=== PATIENT | male | born 1955 | race Caucasian/White ===

== ENCOUNTER 2020-05-17 16:55 | Emergency (ER) | payer MEDICARE, SELFPAY ==
--- NOTE | ~2020-05-17 | XR_ITS ---
EXAMINATION: XR chest 2V 05/17/2020 17:47 INDICATION: Midsternal chest pain PROCEDURE: 2 view chest COMPARISON: 09/18/2016 FINDINGS: The lungs are clear. The cardiomediastinal silhouette is within normal limits. There are no pleural effusions. There is no pneumothorax suspected. IMPRESSION: 1: NO ACUTE CARDIOPULMONARY DISEASE. Reviewed, dictated and finalized at location A.
--- NOTE | 2020-05-17 16:57 | ECG_ITS ---
Measurements Intervals [place] Rate: 64 P: MN: 0 QRS: -26 QRSD: 91 T: 0 QT: 376 QTc: 390 Interpretive Statements SINUS OR ECTOPIC ATRIAL RHYTHM WITH SHORT [place] INTERVAL BORDERLINE R WAVE PROGRESSION, ANTERIOR LEADS NONSPECIFIC T-WAVE ABNORMALITY- INFERIOR LEADS BORDERLINE ECG Electronically Signed On 05-18-2020 7:14:56 CDT by Jalen Weiss D.O.
[2020-05-17 17:09] VITALS: BP 147/93; PULSE 64; RESP 17; TEMP 36.8; O2SAT 100
[2020-05-17 17:14] VITALS: O2SAT 100
[2020-05-17] MEDS: ASPIRIN 81 MG CHEWABLE TABLET 324 MG PO (17:27)
[2020-05-17 17:28] VITALS: BP 141/81; PULSE 63; RESP 16; O2SAT 98
[2020-05-17 17:30] LABS: Basophils Percent Auto 0.6 % (0.2-1.2); Eosinophils Absolute Auto 0.1 K/mm3 (0-0.3); Eosinophils Percent Auto 1.3 % (0-4.4); Hematocrit 45.5 % (42.0-52.0); Hemoglobin 15.3 g/dL (14.0-18.0); Immature Granulocyte Absolute 0.01 K/mm3 (0.00-0.031); Immature Granulocyte Percent A 0.1 % (0-0.5); Lymphocytes Absolute Auto 2.12 K/mm3 (0.9-3.2); Lymphocytes Percent Auto 30.6 % (18.3-44.2); Mean Corpuscular HGB Conc 33.6 g/dl (32-36); Mean Corpuscular Volume 95.2 fl (80-100); Mean Platelet Volume 12.4 fl (7.4-10.4); Monocytes Absolute Auto 0.5 K/mm3 (0.1-0.6); Monocytes Percent Auto 6.8 % (2.6-8.5); Neutrophils Absolute Auto 4.2 K/mm3 (1.3-6.7); Neutrophils Percent Auto 60.6 % (45.5-73.1); Platelet Count Result 207 k/mm3 (150-375); Red Blood Count 4.78 M/mm3 (4.6-6.20); Red Cell Distribution Width 13.4 % (11.5-14.5); White Blood Count 6.9 K/mm3 (4.5-10.0)
--- NOTE | 2020-05-17 17:31 | ED.CHESTPAIN ---
HPI - Chest Pain General Chief Complaint: Chest Pain Stated Complaint: midsternal chest pain Time Seen by Provider: 05/17/20 17:24 History of Present Illness HPI narrative: Patient presents for lower sternal chest pain today. Happened just prior to present. Lasted about a minute. It was a 9 out of 10 on intensity. His hands were sweating. He had no shortness of breath or nausea. He has not been sick recently. He works here as a radiologist. He has had a long history of irregular heartbeat. Many years ago he saw a files supervisor and wore a cardiology coordinator. He does not recall what diagnosis was given. He often feels extra beats. He had a family member that at 65 of unknown causes. He has had a few elevated blood pressures recently. He has known hypercholesterolemia. He does not smoke or do drug. MD complaint: chest pain Pertinent past history: other (Irregular heartbeats) Onset (ago): minute(s) Timing of current episode: now resolved Prior episodes: No Onset: during rest Pain location: substernal Pain radiation: none Severity: severe Quality: tightness Relieving factors: nothing Exacerbating factors: nothing Related Data Home Medications Medication Instructions Recorded Confirmed levothyroxine 05/17/20 Allergies Allergy/AdvReac Type Severity Reaction Status Date / Time No Known Allergies Allergy Verified 05/17/20 17:12 Review of Systems Review of Systems: Narrative: CONSTITUTIONAL: Denies fever, chills, but did have sweaty palms EYES: Denies visual changes, redness, or discharge. ENT: Denies rhinorrhea, congestion, sore throat, or otalgia. CARDIOVASCULAR: He has sharp severe chest pain, and frequent palpitations, but no edema. RESPIRATORY: Denies cough or dyspnea. GASTROINTESTINAL: Denies abdominal pain, nausea, vomiting, or diarrhea. GENITOURINARY: Denies dysuria or hematuria. SKIN: Denies rash or itching. MUSCULOSKELETAL: Denies back pain, joint pain, or myalgia. NEUROLOGIC: Denies headache, numbness, or weakness. PSYCHIATRIC: He has some family stress. All systems reviewed & are unremarkable except as noted in HPI and below PMFSH Past Medical History Medical History (Updated 05/17/20 @ 18:11 by Cherelle Walter MD) Elevated blood pressure reading Hypercholesterolemia Irregular heartbeat Surgical History Surgical History (Updated 05/17/20 @ 17:32 by Cherelle Walter MD) History of bilateral cataract extraction History of penile implant Social History Social History (Updated 05/17/20 @ 17:32 by Cherelle Walter MD) Smoking status: Never smoker Alcohol intake: current Alcohol use details: Rarely Substance use: never Gender identity (if verbalized by the patient): Male Exam Narrative: Exam Narrative: GENERAL: Well-appearing, well-nourished, and in no acute distress. [place] HEAD: Normocephalic, atraumatic. EYES: PERRLA and EOMI. ENT: Nares clear, no rhinorrhea or epistaxis. Mucous membranes moist. NECK: Supple. CHEST: Clear to auscultation. No respiratory distress. HEART: Regular rate and rhythm. No murmur heard. Normal peripheral pulses. ABDOMEN: Soft, nontender, nondistended, normal active bowel sounds. EXTREMITIES: Normal range of motion. No edema. SKIN: Warm, dry, no rash. NEURO: No focal deficits. Alert and oriented x3. PSYCH: Normal mood and affect. Course Reevaluation(s) Reevaluation #1: Went back in room and talk to the patient about all of his good labs. We discussed several good files supervisor in the [place] area, but he would like to see Dr. Richardson here. Date: 05/17/20 Time: 18:13 Vital Signs Vital signs: Vital Signs Temperature 98.2 F 05/17/20 17:09 Pulse Rate 64 05/17/20 17:09 Respiratory Rate 17 05/17/20 17:09 Blood Pressure 147/93 H 05/17/20 17:09 Pulse Oximetry 100 05/17/20 17:09 Temperature 98.2 F 05/17/20 17:09 Pulse Rate 63 05/17/20 17:28 Respiratory Rate 16 05/17/20 17:28 Blood Pressure 141/81 H
[2020-05-17 17:40] LABS: Prothrombin Time 12.6 Seconds (11.1-14.7)
[2020-05-17 17:41] LABS: Anion Gap 14.2 mmol/L (7-16); Blood Urea Nitrogen 20 mg/dL (9-20); Calcium 8.9 mg/dL (8.4-10.2); Carbon Dioxide 25 mmol/L (22-30); Chloride 104 mmol/L (98-107); Estimated CRCL calculation 82 ml/min; Estimated Glomerular Filt Rate > 60; Glucose 107 mg/dL (75-110); Partial Thromboplastin Time 26.9 SECONDS (22.3-36.8); Potassium 4.2 mmol/L (3.4-5.0); Sodium 139 mmol/L (137-145)
[2020-05-17 17:53] LABS: Troponin I < 0.012 ng/mL (0.000-0.034)
[2020-05-17 17:58] LABS: NT Pro B Type Natriuretic Pept 31 PG/ML (5-100)
[2020-05-17 18:19] VITALS: BP 171/78; PULSE 67; RESP 16; O2SAT 96
== END 2020-05-17 18:35 | disposition home or self-care (01) ==
PROVIDERS: Emergency Medicine; Emergency Provider Emergency Medicine
DX: R07.2 Precordial pain (principal); I49.9 Cardiac arrhythmia, unspecified; R03.0 Elevated blood-pressure reading, without diagnosis of hypertension; E78.00 Pure hypercholesterolemia, unspecified; Z98.42 Cataract extraction status, left eye; Z98.41 Cataract extraction status, right eye; R94.31 Abnormal electrocardiogram [ECG] [EKG]
CPT/HCPCS: 36415; 71046; 80048; 83880; 84443; 84484; 85025; 85610; 85730; 93005; 99284; A9270

== ENCOUNTER 2020-08-07 01:30 | Emergency (ER) | payer MEDICARE, BC, SELFPAY ==
--- NOTE | 2020-08-07 01:31 | ED.LOWEXIN ---
HPI - Extremity Injury (Lower) General Chief Complaint: Extremity Injury, Lower Stated Complaint: fb right foot Time Seen by Provider: 08/07/20 01:31 Source: patient Mode of arrival: ambulatory Limitations: no limitations History of Present Illness HPI Narrative: Patient is a 64-year-old male who presents for evaluation of irritation to the bottom of the right foot, at the base of the right fourth toe. Patient states that he was in [place] walking barefoot yesterday and he believed he stepped on a piece of gravel which is now lodged in his foot. He reports mild swelling, redness, pain at the site. No forefoot edema, redness, no streaking erythema. No ankle pain. No other injury. Patient is up-to-date on his tetanus. He denies any numbness. No history of skin infection in the past. Related Data Home Medications Medication Instructions Recorded Confirmed levothyroxine 05/17/20 Allergies Allergy/AdvReac Type Severity Reaction Status Date / Time No Known Allergies Allergy Verified 08/07/20 01:34 Review of Systems Review of Systems: Narrative: CONSTITUTIONAL: Denies fever CARDIOVASCULAR: Denies chest pain RESPIRATORY: Denies cough or dyspnea. GASTROINTESTINAL: Denies abdominal pain SKIN: Denies rash, reports pain, swelling and redness at the base of the right fourth toe MUSCULOSKELETAL: Denies back pain NEUROLOGIC: Denies headache . [facility] Past Medical History Medical History Elevated blood pressure reading Hypercholesterolemia Irregular heartbeat Surgical History Surgical History History of bilateral cataract extraction History of penile implant Social History Social History Smoking status: Never smoker Alcohol intake: current Substance use: never Gender identity (if verbalized by the patient): Male Exam Narrative: Exam Narrative: GENERAL: Awake, alert, conversant HEAD: Normocephalic, atraumatic. EYES: PERRLA and EOMI. ENT: Nares clear, no rhinorrhea or epistaxis. Mucous membranes moist. NECK: Supple. CHEST: No respiratory distress, breathing even and non labored HEART: Regular rate, sinus rhythm ABDOMEN:Non distended, non tender EXTREMITIES: Normal range of motion. No edema. DP pulses 2+ right foot. Intact distal sensation. No forefoot edema, erythema. No tenderness. There is mild tenderness, small abscess at the base of the right fourth toe with surrounding erythema. No eschar. No vesicles or blistering. SKIN: Warm, dry, no rash. NEURO:No focal deficits. Alert and oriented x3 Course Vital Signs Vital signs: Vital Signs Temperature 36.0 C L 08/07/20 01:34 Pulse Rate 58 L 08/07/20 01:34 Respiratory Rate 17 08/07/20 01:34 Blood Pressure 131/82 08/07/20 01:34 Pulse Oximetry 98 08/07/20 01:34 Temperature 36.0 C L 08/07/20 01:34 Pulse Rate 58 L 08/07/20 01:34 Respiratory Rate 17 08/07/20 01:34 Blood Pressure 131/82 08/07/20 01:34 Pulse Oximetry 98 08/07/20 01:34 Procedures Abscess I/D foot: Date of Incision: 08/07/20 Time of Incision: 01:49 Side (if applicable): right Local Anesthetic: lidocaine 1% Amount of anesthesia used (mL): 3 Technique: incised with #11 blade Amount of fluid expressed (mL): 1 Irrigation: Yes Packing used?: none I&D Results: Pus and Blood MDM - Extremity Injury (Lower) MDM Narrative Medical decision making narrative: Patient with small foot abscess, small piece of gravel removed from right foot. At this point, there is no severe cellulitis. His tetanus is up-to-date. He is declining any other pain medication. He was not wearing socks or shoes, and this does not warrant ciprofloxacin. Patient neurovascularly intact and declined an x-ray. He has a small abscess which was drained. Spoke with
[2020-08-07 01:34] VITALS: BP 131/82; PULSE 58; RESP 17; TEMP 36; O2SAT 98
[2020-08-07] MEDS: LIDO 1%/EPINEPHRINE 1:100,000 20 ML VIAL 5 ML INFILTRATE (01:55)
== END 2020-08-07 02:22 | disposition home or self-care (01) ==
PROVIDERS: Emergency Provider Emergency Medicine
DX: L02.611 Cutaneous abscess of right foot (principal); S90.851A Superficial foreign body, right foot, initial encounter; E78.00 Pure hypercholesterolemia, unspecified; Z98.42 Cataract extraction status, left eye; Z98.41 Cataract extraction status, right eye
CPT/HCPCS: 10060; 28190; 99283

== ENCOUNTER 2020-08-14 12:20 | Emergency (ER) | payer MEDICARE, BC, SELFPAY ==
[2020-08-14 12:30] VITALS: BP 129/77; PULSE 59; RESP 18; TEMP 36.6; O2SAT 98
--- NOTE | 2020-08-14 12:51 | ED.WOUNDLAC ---
HPI - Wound/Laceration General Chief Complaint: Wound/Laceration Stated Complaint: right foot abscess Time Seen by Provider: 08/14/20 12:21 History of Present Illness HPI narrative: Patient is a 64-year-old male who presents ER with concern for abscess to the right foot. Located over the fourth MTP plantar aspect. Was seen 1 week ago and had incision and drainage performed. He began taking antibiotics 1 day ago when pain returned as well as swelling. Slight redness around it. No fevers or chills. No additional trauma. He had a small piece of gravel removed during his last I&D as well. Related Data Home Medications Medication Instructions Recorded Confirmed levothyroxine 05/17/20 Allergies Allergy/AdvReac Type Severity Reaction Status Date / Time No Known Allergies Allergy Verified 08/14/20 12:36 Review of Systems Constitutional: Constitutional: Denies chills and Denies fever(s) Musculoskeletal: Comments: No calf pain, right foot pain is noted however. Integumentary/Breasts: Skin/Breast: Reports erythema Comments: Swelling over right fourth MTP plantar aspect. PMFSH Past Medical History Medical History Elevated blood pressure reading Hypercholesterolemia Irregular heartbeat Surgical History Surgical History History of bilateral cataract extraction History of penile implant Social History Social History Smoking status: Never smoker Alcohol intake: current Substance use: never Gender identity (if verbalized by the patient): Male Exam Narrative: Exam Narrative: GENERAL: Well-appearing, well-nourished, and in no acute distress. HEAD: Normocephalic, atraumatic. EXTREMITIES: Normal range of motion. No deformity. Abscess plantar abscess aspect of right foot at the fourth MTP. Healing callus where previous I&D was performed. SKIN: Warm, dry, no rash, no lymphangitic streaking.. NEURO: Alert and oriented x3. Course Course Emergency Course: Topical antibiotic and Band-Aid applied. Recommend taking full course of Keflex. Vital Signs Vital signs: Vital Signs Temperature 97.8 F 08/14/20 12:30 Pulse Rate 59 L 08/14/20 12:30 Respiratory Rate 18 08/14/20 12:30 Blood Pressure 129/77 08/14/20 12:30 Pulse Oximetry 98 08/14/20 12:30 Temperature 97.8 F 08/14/20 12:30 Pulse Rate 59 L 08/14/20 12:30 Respiratory Rate 18 08/14/20 12:30 Blood Pressure 129/77 08/14/20 12:30 Pulse Oximetry 98 08/14/20 12:30 Procedures Abscess I/D foot: Date of Incision: 08/14/20 Time of Incision: 12:43 Side (if applicable): right Local Anesthetic: lidocaine 1% Amount of anesthesia used (mL): 2 Technique: incised with #11 blade Irrigation: No Packing used?: none I&D Results: Pus Abcess I&D Additional Comments: Not amenable to packing. No deep loculations to break up. Discharge Plan Discharge Clinical Impression: Abscess Patient Disposition: Home, Self-Care Condition: Stable Instructions: Antibiotic Form, Abscess (ED) Additional Instructions: Return to the ER if you have redevelopment of abscess, you have fever over 100.4 ?F, your foot becomes red and hot and swollen, or you have additional concerns. Prescriptions: No Action levothyroxine 112 mcg tablet RF: 0 lisinopril 10 mg tablet 10 mg PO DAILY Qty: 30 RF: 0 cephalexin [Keflex] 500 mg capsule 500 mg PO Q8H 10 Days Qty: 30 RF: 0 Follow-up/Referrals: PHYSICIAN,[employer] [facility] [Primary Care Provider] -
[2020-08-14 13:24] VITALS: BP 134/75; PULSE 78; RESP 16; O2SAT 100
== END 2020-08-14 13:25 | disposition home or self-care (01) ==
PROVIDERS: Emergency Provider Emergency Medicine
DX: L02.611 Cutaneous abscess of right foot (principal); E78.00 Pure hypercholesterolemia, unspecified
CPT/HCPCS: 10060; 99282

== ENCOUNTER 2023-06-26 08:30 | Outpatient (CLI) | payer MEDICARE, SELFPAY ==
[2023-06-26 08:51] LABS: Hemoglobin 10.5 g/dL (14.0-18.0)
== END 2023-06-26 08:31 | disposition home or self-care (01) ==
PROVIDERS: Visit Provider Radiology Diagnostic Radiology
DX: K25.4 Chronic or unspecified gastric ulcer with hemorrhage (principal)
CPT/HCPCS: 36415; 85014; 85018

== ENCOUNTER 2023-09-04 14:34 | Outpatient (CLI) | payer MEDICARE, SELFPAY ==
[2023-09-04 15:15] LABS: Alanine Aminotransferase 29 U/L (6-50); Alkaline Phosphatase 66 U/L (38-126); Aspartate Amino Transferase 40 U/L (17-59); Bilirubin,Total 0.5 mg/dL (0.2-1.3)
== END 2023-09-04 14:35 | disposition home or self-care (01) ==
DX: B35.1 Tinea unguium (principal); M79.674 Pain in right toe(s); M79.675 Pain in left toe(s); B07.0 Plantar wart
CPT/HCPCS: 36415; 80076

== ENCOUNTER 2024-01-16 15:32 | Outpatient (CLI) | payer MEDICARE, SELFPAY ==
[2024-01-16 17:19] LABS: Rubella IgG Antibody > 110.0 IU/ML
[2024-01-21 17:15] LABS: Rubeola Measles IgG >300.00 AU/mL
== END 2024-01-16 15:33 | disposition home or self-care (01) ==
PROVIDERS: Visit Provider Radiology Diagnostic Radiology
DX: Z01.84 Encounter for antibody response examination (principal)
CPT/HCPCS: 36415; 86735; 86762; 86765